=== PATIENT | male | born 1985 | race African-American/Black ===

== ENCOUNTER 2018-06-22 23:47 | Emergency (ER) | END 2018-06-23 07:10 | disposition home or self-care (01) ==

== ENCOUNTER 2019-08-07 21:50 | Emergency (ER) | payer OTHER ==
[~2019-08-07] VITALS: Ht 180.3 cm; Wt 72.7 kg
[~2019-08-07 21:50] MED LIST: AMLO-147 PO; APIX5TAB PO; BACL20TA PO; CEFD300C2 PO; CEPH-443 PO; FER325 PO; HYDR-3980 PO; LEVE-5 PO; MEGE400O2 PO; MEGE40TA PO; MERO1VIA IV; NITR-58 PO; OXYB5TAB10 PO
[2019-08-07 22:05] VITALS: Ht 180.3 cm; Wt 72.7 kg
[2019-08-08] MEDS ORDERED: POTASSIUM CHLORIDE (SR) 20 MEQ TAB PO STA (00:21)
[2019-08-08 00:43] VITALS: BP 116/65; PULSE 81; RESP 20
== END 2019-08-08 00:44 | disposition home or self-care (01) ==
LOC: E/R 21:50
DX: R22.41 Localized swelling, mass and lump, right lower limb (principal); E87.6 Hypokalemia; D64.9 Anemia, unspecified; D72.819 Decreased white blood cell count, unspecified; Z87.891 Personal history of nicotine dependence; Z79.01 Long term (current) use of anticoagulants
CPT/HCPCS: 80048; 85025; 93970; Z7502; Z7610